=== PATIENT | male | born 1955 | race Caucasian/White ===

== ENCOUNTER 2016-03-04 09:25 | Day surgery (SDC) | payer OTHER ==
[2016-02-28 12:22] VITALS: BMI 19.6
[~2016-03-04 09:25] MED LIST: LACTATED RINGERS 1,000 ML IV SCH; LIDOCAINE 1% 20 ML VIAL (10MG/ML) FOR IV START INTRADERMA PRN
[2016-03-04 09:40] VITALS: RESP 16; TEMP 97.6
[2016-03-04] MEDS ORDERED: PROPOFOL 10 MG/ML 20 ML VIAL IV ONE (10:03)
[2016-03-04] MEDS ORDERED: LIDOCAINE 1% INJ 10MG/ML (20 ML MDV) ONE (10:03)
--- NOTE | 2016-03-04 10:36 | P.PCN ---
Date of Procedure: 03/04/16 Procedure(s) Performed: Procedure: Colonoscopy and polypectomy. Preoperative diagnosis: Screening for neoplasia, patient has history of polyps. Postoperative diagnosis: 1. Mild sigmoid diverticulosis with no evidence of acute diverticulitis or strictures. 2. Two small polyps in the sigmoid snared but no large polyps or cancer. Preparation: HalfLytely prep. Sedation: Was provided by anesthesia. Brief clinical history: The patient is a 60-year-old male who is referred for this evaluation for screening for neoplasia because of history of polyps. His last exam was around 7 or 8 years ago. Currently, he has no abdominal complaints, bleeding or anemia. Procedure: With the patient on his left lateral decubitus position and after informed consent and adequate sedation, the perianal area was inspected and it did not show any fissures or fistulas. There were no masses felt on digital rectal examination. The Olympus CFQ 160L video colonoscope was then inserted in the rectum in the usual fashion and advanced to the cecum. There were occasional diverticular orifices seen in the distal sigmoid with no evidence of acute diverticulitis or strictures. There were 2 small polyps in the mid sigmoid that were snared and retrieved by suction but no large polyps or cancer. I retroflexed the endoscope in the rectum before the endoscope was withdrawn. Low-grade internal hemorrhoids were noted but there was no bleeding. The patient tolerated the procedure well. Plan: The patient was reassured. Discussed dietary measures and I recommended repeat exam in 5 years. He will follow up with you as planned.
[2016-03-04 10:53] VITALS: BP 120/79; PULSE 83
== END 2016-03-04 11:13 | disposition home or self-care (01) ==
LOC: ORWHC2ENDO 09:25
DX: Z12.11 Encounter for screening for malignant neoplasm of colon (principal); Z86.010 Personal history of colon polyps; D12.5 Benign neoplasm of sigmoid colon; K57.30 Diverticulosis of large intestine without perforation or abscess without bleeding; K64.8 Other hemorrhoids; J44.9 Chronic obstructive pulmonary disease, unspecified; I10 Essential (primary) hypertension; E78.5 Hyperlipidemia, unspecified; B18.2 Chronic viral hepatitis C; E07.9 Disorder of thyroid, unspecified; I25.2 Old myocardial infarction; Z79.82 Long term (current) use of aspirin; Z79.899 Other long term (current) drug therapy
CPT/HCPCS: 88305; 45385; J2001; J2704; 99153

== ENCOUNTER → 2016-06-26 | Outpatient (CLI) | payer OTHER ==
--- NOTE | 2016-06-26 11:02 | US ---
EXAMINATION TYPE: US abdomen limited DATE OF EXAM: 06/26/2016 10:34 AM COMPARISON: NONE CLINICAL HISTORY: B19.2 Chronic Hepatitis C. Hep C, pt has no other complaints at this time EXAM MEASUREMENTS: Liver Length: 13.7 cm Gallbladder Wall: 0.3 cm CBD: 0.3 cm Right Kidney: 12.0 x 4.6 x 5.1 cm Pancreas: wnl, tail obscured by overlying bowel gas Liver: wnl Gallbladder: wnl Evidence for sonographic Sanchez's sign: No CBD: wnl Right Kidney: wnl, lower pole gassed out Liver appears homogeneous in echotexture without evidence of worrisome intrahepatic mass with hepatic ductal dilatation on images saved. IMPRESSION: No suspicious intrahepatic mass or intrahepatic ductal dilatation is seen.
== END | disposition home or self-care (01) ==
LOC: RADUSWWP 10:16
PROVIDERS: ATTEND Family Medicine
DX: Z09 Encounter for follow-up examination after completed treatment for conditions other than malignant neoplasm (principal); Z86.19 Personal history of other infectious and parasitic diseases
CPT/HCPCS: 76705

== ENCOUNTER → 2017-04-22 | Outpatient (CLI) | payer OTHER ==
[2017-04-22 11:23] LABS: HCT 49.4 % (39.0-53.0); HGB 16.1 gm/dL (13.0-17.5); MCH 31.8 pg (25.0-35.0); MCHC 32.6 g/dL (31.0-37.0); MCV 97.8 fL (80.0-100.0); Mean Platelet Volume 7.8; Platelet Count 141 k/uL (150-450); RBC 5.05 m/uL (4.30-5.90); RDW 12.8 % (11.5-15.5); WBC 7.9 k/uL (3.8-10.6)
[2017-04-22 11:29] LABS: Anion Gap 13 mmol/L; Blood Urea Nitrogen 14 mg/dL (9-20); Carbon Dioxide 26 mmol/L (22-30); Chloride 103 mmol/L (98-107); Potassium 5.2 mmol/L (3.5-5.1); Sodium 142 mmol/L (137-145)
== END | disposition home or self-care (01) ==
LOC: LABPAT 10:40
PROVIDERS: ATTEND Internal Medicine Cardiovascular Disease
DX: Z01.812 Encounter for preprocedural laboratory examination (principal); I25.5 Ischemic cardiomyopathy
CPT/HCPCS: 36415; 80051; 82565; 84520; 85027

== ENCOUNTER 2017-04-24 07:15 | Day surgery (SDC) | payer OTHER ==
[2017-04-23 08:55] VITALS: BMI 20.3
[~2017-04-24 07:15] MED LIST changes: -LACTATED RINGERS 1,000 ML IV SCH; -LIDOCAINE 1% 20 ML VIAL (10MG/ML) FOR IV START INTRADERMA PRN; +ceFAZolin 1,000 MG in SODIUM CHLORIDE 0.9% IRRIGATIO 250 ML IRRIGATION ONE; +ceFAZolin IN SWFI 2 GM/20 ML SYRINGE IVP ONE
[2017-04-24] MEDS: SODIUM CHLORIDE 0.9% 1,000 ML IV SCH ×5 (07:41→22:53)
[2017-04-24] MEDS ORDERED: fentaNYL (PF) 50 MCG/ML 2 ML AMP ONE (08:52)
[2017-04-24] MEDS ORDERED: MIDAZOLAM 2 MG/2 ML VIAL ONE (08:52)
[2017-04-24] MEDS ORDERED: PROPOFOL 10 MG/ML 20 ML VIAL IV ONE (08:52)
[2017-04-24] MEDS ORDERED: ePHEDrine SULFATE/0.9% NACL/PF 50 MG/5 ML SYRINGE IV ONE (08:52)
[2017-04-24] MEDS ORDERED: IOHEXOL 350 MG/ML 50ML BOTTLE MISCELLANE ONE ×2 (09:00→09:04)
[2017-04-24] MEDS: LIDOCAINE 1% INJ 10MG/ML (20 ML MDV) SQ ONE ×2 (09:21→09:28)
[2017-04-24] MEDS ORDERED: HYDROcodone/APAP 5-325MG 1 EACH TAB PO PRN (10:18)
[2017-04-24] MEDS ORDERED: ACETAMINOPHEN TAB 325 MG TAB PO PRN (10:18)
[2017-04-24] MEDS ORDERED: ALBUTEROL NEBULIZED 2.5 MG/3 ML INHALATION PRN (10:20)
--- NOTE | 2017-04-24 10:34 | P.PCN ---
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 Patient has a class 1-2 congestive heart failure. Patient is advised to have prophylactic AICD implantation. He is advised about the risks and benefits of the procedure. CONSENT:I have discussed the risks, benefits and alternative therapies for the above-mentioned procedure and for both sedation/analgesia as well as necessary blood product administration, if indicated, as they pertain to this patient. The patient has indicated understanding and acceptance of the risks and procedures discussed. PROCEDURE: Patient was brought to the lab in a fasting state. Patient was prepped and draped in the usual fashion. Patient was given IV sedation with fentanyl and Versed. The skin below the left clavicle was infiltrated with lidocaine. An incision was made parallel to deltopectoral groove was deepened until the pectoral fascia was exposed. A pocket was created by blunt dissection and cautery. Axillary venography was performed to delineate the course of the axillary vein. 1 venous stick was performed into extrathoracic portion of the axillary vein and one sheath was advanced over the guidewires and left in subclavian vein. Conscious Sedation: Administered by department of anesthesia Procedure time: 58 minutes LEADS: VENTRICULAR: This is manufactured by [employer] model number is [id number] and the serial number is [id number] The ventricular lead is maneuvered l with help of a straight and curved stylets into the left ventricle apical region. Satisfactory position was obtained and threshold measurements were made. THRESHOLDS: VENTRICLE: The minimum patient threshold was 0.5 at pulse width of 0.5. The impedance is 9:30. R-wave: 10 mV The lead and pulse generator remained in the pocket after it was washed with antibiotics. Pocket was closed in the usual fashion. The fascia was closed with 2-0 Prolene ,the subcutaneous tissue was closed with 3-0 Prolene and the skin was closed with 4-0 Prolene. DFT TESTING: Patient was given full sedation by department of anesthesia. VF was induced with T shock. 11 J shock converted to a low rate and patient spontaneously converted subsequently to sinus rhythm. A computed shock of 21 was applied after the conversion. Subsequently VF was induced with T shock again. A 21 J shock converted him to sinus rhythm. Patient tolerated the procedure well PROGRAMMING: Bradycardia therapy: MODE: VVI RATE: 40 OUTPUT: Ventricle: 3.5 V Tachycardia therapy: #1. VF zone is programmed to 200 bpm. Therapies are programmed to 35 J 6. #2. VT zone is programmed to a rate of 170. The therapies are programmed to burst pacing followed by ramp pacing followed by cardioversion 4. The first cardioversion is a 30 J followed by 353 FINAL IMPRESSION: #1. Axillary venography. #2. Successful implantation of single coil single-chamber AICD #3. DFT testing COMPLICATIONS: None PLAN:. Continue prophylactic antibiotics. Continue monitoring on the telemetry unit. Chest x-ray in the morning. If stable will discharge home in the morning.
[2017-04-24] MEDS: LACTATED RINGERS 1,000 ML IV SCH ×2 (16:02→22:54)
[2017-04-24] MEDS: ceFAZolin IN SWFI 2 GM/20 ML SYRINGE IVP SCH ×2 (16:23→22:15)
[2017-04-24] MEDS: IPRATROPIUM-ALBUTEROL 3 ML NEB INHALATION SCH (20:31)
[2017-04-25] MEDS: ceFAZolin IN SWFI 2 GM/20 ML SYRINGE IVP SCH ×2 (03:24→09:28)
[2017-04-25] MEDS ORDERED: LEVOTHYROXINE 25 MCG TAB PO SCH (06:30)
[2017-04-25 07:53] VITALS: RESP 18; TEMP 98.2
[2017-04-25] MEDS: IPRATROPIUM-ALBUTEROL 3 ML NEB INHALATION SCH (08:58)
[2017-04-25] MEDS ORDERED: TAMSULOSIN 0.4 MG CAP.ER.24H PO SCH (09:00)
[2017-04-25] MEDS ORDERED: ASPIRIN 325 MG TAB PO SCH (09:00)
[2017-04-25] MEDS ORDERED: SPIRONOLACTONE 25 MG TAB PO SCH (09:00)
[2017-04-25] MEDS ORDERED: METOPROLOL SUCCINATE (ER) 100 MG TAB.ER.24H PO SCH (09:00)
[2017-04-25] MEDS ORDERED: LISINOPRIL 10 MG TAB PO SCH (09:00)
--- NOTE | 2017-04-25 11:07 | ECHOF ---
Referral Reason:cardiomyopathy MEASUREMENTS -------- HEIGHT: 182.9 cm WEIGHT: 68.0 kg BP: 112/71 RVIDd: 2.8 cm (< 3.3) IVSd: 0.8 cm (0.6 - 1.1) LVIDd: 4.9 cm (3.9 - 5.3) LVPWd: 0.9 cm (0.6 - 1.1) IVSs: 1.0 cm LVIDs: 3.7 cm LVPWs: 1.1 cm LAESV Index (A-L): 16.38 ml/m Ao Diam: 3.6 cm (2.0 - 3.7) AV Cusp: 1.6 cm (1.5 - 2.6) LA Diam: 3.0 cm (2.7 - 3.8) MV E Jose: 0.52 m/s MV DecT: 272 ms MV A Jose: 0.55 m/s MV E/A Ratio: 0.95 RAP: 5.00 mmHg RVSP: 8.66 mmHg MV EF SLOPE: 84.16 mm/s (70 - 150) MV EXCURSION: 1.87 cm (> 18.000) FINDINGS -------- Sinus rhythm. This was a technically adequate study. The left ventricular size is normal. Left ventricular wall thickness is normal. There is severe g lobal hypokinesis of LV . Overall left ventricular systolic function is severely impaired with, an EF between 20 - 25 %. Basal lateral LV wall motion is hypokinetic. Basal posterior LV wall motio n is hypokinetic. Basal inferior LV wall motion is hypokinetic. Basal inferoseptal LV wall meeta on is hypokinetic. Mid inferior LV wall motion is hypokinetic. Apical inferior LV wall motion i s normal. The right ventricle is mildly enlarged. Normal LA size by volume 22+/-6 ml/m2. The right atrium is normal in size. Electronic pacemaker lead seen in the right ventricular cavity. Aortic valve is trileaflet and is mildly thickened. There is no evidence of aortic regurgitation. There is no evidence of aortic stenosis. The mitral valve leaflets are mildly thickened. There is trace to mild mitral regurgitation. Trace tricuspid regurgitation present. Right ventricular systolic pressure is normal at < 35 mmHg. There is no evidence of pulmonary hypertension. The pulmonic valve was not well visualized. The aortic root size is normal. Normal inferior vena cava with normal inspiratory collapse consistent with estimated right atrial pre ssure of 5 mmHg. CONCLUSIONS -------- 1. Sinus rhythm. 2. This was a technically adequate study. 3. The left ventricular size is normal. 4. Left ventricular wall thickness is normal. 5. Apical inferior LV wall motion is normal. 6. The right ventricle is mildly enlarged. 7. Normal LA size by volume 22+/-6 ml/m2. 8. Electronic pacemaker lead seen in the right ventricular cavity. 9. Aortic valve is trileaflet and is mildly thickened. 10. The mitral valve leaflets are mildly thickened. 11. There is trace to mild mitral regurgitation. 12. Trace tricuspid regurgitation present. 13. Right ventricular systolic pressure is normal at < 35 mmHg. 14. There is no evidence of pulmonary hypertension. 15. The pulmonic valve was not well visualized. 16. The aortic root size is normal. CUTTER FIRST: Bryn Long RDCS
--- NOTE | 2017-04-25 11:08 | XR ---
EXAMINATION TYPE: XR chest 2V DATE OF EXAM: 04/25/2017 COMPARISON: NONE HISTORY: Pacer check TECHNIQUE: Frontal and lateral views of the chest are obtained. FINDINGS: Scattered senescent parenchymal changes noted. Pacer device is in place with the distal lead within the right ventricle. No evidence for pneumothora x. No evidence for infiltrate. Linear atelectasis or scarring left lung base. Heart size is stable. Mediastinal structures are stable and grossly unremarkable. No evidence for hilar prominence. Degenerative changes dorsal spine. IMPRESSION: 1. No evidence for acute pulmonary disease.
[2017-04-25 11:49] VITALS: BP 133/83; PULSE 66
[2017-04-25] MEDS ORDERED: MULTIVITAMINS, THERA 1 EACH TAB PO SCH (12:00)
--- NOTE | 2017-04-25 12:24 | P.DS ---
Providers Date of admission: 04/24/2017 Expected date of discharge: 04/25/17 Attending physician: Nena Murry [facility] care physician[facility] Course: Mr. Dejesus was brought into the hospital 04/24/2017 for elective placement of single chamber AICD for ischemic cardiomyopathy, class 1-2 congestive heart failure. There was successful implantation of a single coil single chamber AICD with appropriate programming and DFT testing. Chest xray this morning reveals no acute abnormalities, echocardiogram is negative for pericardial effusion, telemetry tracings have been unremarkable. [employer] tested the device and it is working appropriately. He has received his antibiotics without incident. Left arm is maintained in a sling as advised. Dressing is clean dry and intact. Denies pain to the site. Follow-up appointment has been made for device check in 1-week with instructions to not use his left arm, no driving, no heavy lifting. He is agreeable and family is at the bedside during instructions. The pressure 133/83 heart rate 66 afebrile maintaining oxygen saturation on room air. GENERAL: Well-appearing, well-nourished and in no acute distress. NECK: Supple without JVD or thyromegaly. LUNGS: Breath sounds clear to auscultation bilaterally. Respiration equal and unlabored. No wheezes, rales or rhonchi. HEART: Regular rate and rhythm without murmurs, rubs or gallops. S1 and S2 heard. EXTREMITIES: Normal range of motion, no edema. Discharge medications include: Flomax 0.4 mg daily, Aldactone 25 mg daily, multivitamin one daily, Toprol 100 mg daily, lisinopril 10 mg daily, Synthroid 25 g daily, aspirin 325 mg daily and Keflex 500 mg 3 times a day 3 days. The prescription has been sent to his pharmacy with instructions for usage. Patient Condition at Discharge: Good Plan - Discharge Summary Discharge Rx Participant: No New Discharge Prescriptions: New Cephalexin [Keflex] 500 mg PO Q8HR 3 Days #9 cap Continue Spironolactone [Aldactone] 25 mg PO DAILY Ipratropium/Albuterol Sulfate [Combivent Respimat Inhaler] 2 puff INHALATION BID Aspirin 325 mg PO DAILY Albuterol Inhaler [Ventolin Hfa Inhaler] 1 - 2 puff INHALATION Q6HR PRN PRN Reason: Dyspnea Tamsulosin [Flomax] 0.4 mg PO DAILY Lisinopril [Zestril] 10 mg PO DAILY Levothyroxine Sodium [Synthroid] 25 mcg PO DAILY Multivitamin [Men's Multi-Vitamin] 1 each PO DAILY Metoprolol Succinate [Toprol XL] 100 mg PO DAILY Discharge Medication List Albuterol Inhaler [Ventolin Hfa Inhaler] 1 - 2 puff INHALATION Q6HR PRN [History] Aspirin 325 mg PO DAILY 02/28/16 [History] Ipratropium/Albuterol Sulfate [Combivent Respimat Inhaler] 2 puff INHALATION BID 02/28/16 [History] Levothyroxine Sodium [Synthroid] 25 mcg PO DAILY 02/28/16 [History] Lisinopril [Zestril] 10 mg PO DAILY 02/28/16 [History] Metoprolol Succinate [Toprol XL] 100 mg PO DAILY 02/28/16 [History] Multivitamin [Men's Multi-Vitamin] 1 each PO DAILY 02/28/16 [History] Spironolactone [Aldactone] 25 mg PO DAILY 02/28/16 [History] Tamsulosin [Flomax] 0.4 mg PO DAILY 02/28/16 [History] Cephalexin [Keflex] 500 mg PO Q8HR 3 Days #9 cap 04/25/17 [Rx] Follow up Appointment(s)/Referral(s): Nnea Murry MD [STAFF PHYSICIAN] - 1 Week Patient Instructions/Handouts: Implantable Cardioverter Defibrillator (GEN) Discharge Disposition: HOME SELF-CARE
== END 2017-04-25 12:53 | disposition home or self-care (01) ==
LOC: CATHEP 07:15 → 3OBS 10:08 → CATHEP 04-25 12:53
PROVIDERS: ATTEND Internal Medicine Cardiovascular Disease
DX: I25.5 Ischemic cardiomyopathy (principal); I11.0 Hypertensive heart disease with heart failure; I50.42 Chronic combined systolic (congestive) and diastolic (congestive) heart failure; I08.1 Rheumatic disorders of both mitral and tricuspid valves; I25.10 Atherosclerotic heart disease of native coronary artery without angina pectoris; I73.9 Peripheral vascular disease, unspecified; I25.2 Old myocardial infarction; J44.9 Chronic obstructive pulmonary disease, unspecified; E07.9 Disorder of thyroid, unspecified; B19.20 Unspecified viral hepatitis C without hepatic coma; Z79.890 Hormone replacement therapy; Z79.899 Other long term (current) drug therapy; Z79.82 Long term (current) use of aspirin; Z87.891 Personal history of nicotine dependence
CPT/HCPCS: 94640 ×2; 93306; 93641; 33249; 84132; 71046; C1895; C1722; J0690 ×3; J2001; Q9967

== ENCOUNTER → 2017-05-20 | Outpatient (CLI) | payer OTHER ==
--- NOTE | 2017-05-20 10:20 | US ---
EXAMINATION TYPE: US liver DATE OF EXAM: 05/20/2017 COMPARISON: NONE CLINICAL HISTORY: 61-year-old male Chronic viral hepatitis unspec B18.9. finished medication for Hep C last year, no symptoms Technique: Multiple sonographic images of the right upper quadrant are obtained. FINDINGS: Liver Length: 14.9 cm Gallbladder Wall: 0.2 cm CBD: 0.4 cm Right Kidney: 10.2 x 4.7 x 4.8 cm Pancreas: Suboptimal visualization of the pancreatic tail secondary to shadowing from bowel gas. Liver: Normal size with overall homogeneous echotexture. No focal lesion. Gallbladder: posterior fundal non mobile, non shadowing mural-based echogenic areas along the lawn mower sharpener ior gallbladder fundus. Small areas of comet tail artifact are present along the anterior wall compat ible with adenomyomatosis. No abnormal gallbladder distention, pericholecystic fluid, or shadowing ca lculi. Evidence for sonographic Sanchez's sign: no CBD: wnl Right Kidney: No hydronephrosis IMPRESSION: 1. No sonographic evidence for hepatoma. 2. Gallbladder findings could represent adherent debris or polyps along the posterior fundus. Additio nal findings along the anterior wall is compatible with adenomyomatosis. Six-month follow-up gallblad kaiden ultrasound recommended to reassess.
== END | disposition home or self-care (01) ==
LOC: RADUSWWP 09:23
DX: B18.9 Chronic viral hepatitis, unspecified (principal)
CPT/HCPCS: 76705

== ENCOUNTER 2022-10-22 10:51 | Day surgery (SDC) | payer OTHER ==
[2022-10-21 10:12] VITALS: BMI 18.3
[~2022-10-22 10:51] MED LIST changes: +ALPRAZolam 0.25 MG TAB PO PRN; +ASPIRIN 325 MG TAB PO PRN; +SODIUM CHLORIDE 0.9% 1,000 ML IV ONE; +SODIUM CHLORIDE 0.9% 1,000 ML in EMPTY BAG 1 BAG IV ONE; -ceFAZolin 1,000 MG in SODIUM CHLORIDE 0.9% IRRIGATIO 250 ML IRRIGATION ONE; -ceFAZolin IN SWFI 2 GM/20 ML SYRINGE IVP ONE
[2022-10-22 11:15] VITALS: RESP 16; TEMP 98.2
[2022-10-22] MEDS ORDERED: LIDOCAINE 1% INJ 10MG/ML (20 ML MDV) ONE (11:22)
[2022-10-22] MEDS ORDERED: MIDAZOLAM 2 MG/2 ML VIAL IVP ONE (11:51)
[2022-10-22] MEDS ORDERED: LIDOCAINE 1% INJ 10MG/ML (20 ML MDV) SQ ONE (11:52)
[2022-10-22] MEDS ORDERED: VERAPAMIL SYRINGE (5 MG/10 ML) INTRAARTER ONE (11:53)
[2022-10-22] MEDS ORDERED: VERAPAMIL 2.5 MG/ML 2 ML AMP ONE (11:55)
[2022-10-22] MEDS ORDERED: HEPARIN SODIUM 1,000 UN/ML (10ML VL) IV ONE (11:58)
[2022-10-22] MEDS ORDERED: HEPARIN SODIUM 1,000 UN/ML (10ML VL) ONE (11:58)
[2022-10-22] MEDS ORDERED: IOPAMIDOL-370 100ML BTL INJ ONE (12:12)
[2022-10-22] MEDS ORDERED: RX INFO: IV CONTRAST WAS GIVEN 1 EACH MISC MISCELLANE PRN (12:16)
--- NOTE | 2022-10-22 12:24 | P.PCN ---
Date of Procedure: 10/22/22 Operative Findings: AN ABDOMINAL AORTOGRAM AND BILATERAL LOWER EXTREMITIES RUNOFF PERFORMING PHYSICIAN: Jean-Paul Macias MD PROCEDURE PERFORMED: 1. An abdominal aortogram 2. Bilateral lower extremities runoff 3. Ultrasound-guided access of the right radial artery INDICATION: This is a 66-year-old gentleman who sees Dr. Hanna regularly who was experiencing bilateral lower extremity is intermittent claudication and underwent an arterial duplex study came in to be abnormal showing occlusive disease. In the light of that he was brought today to undergo an aortogram with runoff COMPLICATION: None LEVEL OF SEDATION: Moderate was sedation length of 17 minutes APPROACH: Right common femoral artery PROCEDURE DESCRIPTION: After obtaining informed consent and explaining the procedure benefits, risks, and complications, the patient was brought to the cardiac chemical lab supervisor. The right radial artery was prepped and draped in sterile fashion. The right radial artery was cannulated using micropuncture technique, under ultrasound guidance. A micropuncture wire was advanced, and the micropuncture sheath was advanced over the wire, then the micropuncture sheath was exchanged over an 0.35 wire into a 5-Czech sheath dilator assembly then the wire and dilator were removed and sheath was flushed. Subsequently the patient was given 2 mg of verapamil and her arterial and 3000 use of heparin and the venous We did an abdominal aortogram and bilateral lower extremities runoff using 5- Czech pigtail catheter using a power injection. The catheter was initially placed at the level of the renal arteries, and it was advanced into above the bifurcation of the aorta into right and left common iliac arteries. The procedure was completed and there was no complications. SELECTIVE PERIPHERAL ANGIOGRAM: The abdominal aorta: As calcified was mild occlusive disease only. No aneurysmal formation was identified. The common iliac arteries: The right and left common iliac arteries appears to have mild disease only. The external iliac arteries: The right and left external iliac artery has severe lesion appeared to be in the range of 80-90% appeared to be very eccentric. Left external iliac artery appears to have mild to moderate diffuse disease The internal iliac arteries: The right and left internal iliacs are patent. There is severe disease involving the ostial of the left internal iliac The common femoral arteries: In the right common femoral artery is severely diseased. The left common femoral artery is occluded. Superficial femoral arteries: Both SFA are occluded on long segment extending from the ostium all the way to the knee level. Popliteal arteries: Both popliteal appeared to be occluded. Below the knees: The arteries below the knee were not well-visualized because of poor inflow. CONCLUSION: 1. 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 Critical right common femoral artery and occluded left common femoral artery 3. Occluded bilateral SFA and bilateral popliteal POSTPROCEDURE MANAGEMENT: 1. At this point I would consider doing a STATISTICAL ASSISTANT of the right external iliac artery to open the inflow 2. Subsequently the patient will benefit from bilateral femoral endarterectomy if he is a reasonable surgical candidate
[2022-10-22] MEDS ORDERED: SODIUM CHLORIDE 0.9% 1,000 ML IV SCH (12:30)
--- NOTE | 2022-10-22 12:50 | IR ---
EXAMINATION TYPE: IR angio abdominal w runoff DATE OF EXAM: 10/22/2022 COMPARISON: NONE HISTORY: Fluoroscopy time. Fluoroscopy was provided to the referring clinician.
[2022-10-22 15:44] VITALS: BP 105/65; PULSE 75
== END 2022-10-22 15:25 | disposition home or self-care (01) ==
LOC: CATHCVL 10:51
PROVIDERS: ATTEND Internal Medicine Interventional Cardiology
DX: I70.213 Atherosclerosis of native arteries of extremities with intermittent claudication, bilateral legs (principal); I70.202 Unspecified atherosclerosis of native arteries of extremities, left leg; I11.0 Hypertensive heart disease with heart failure; I50.22 Chronic systolic (congestive) heart failure; I25.5 Ischemic cardiomyopathy; Z79.890 Hormone replacement therapy; Z79.82 Long term (current) use of aspirin; Z79.899 Other long term (current) drug therapy
CPT/HCPCS: 36200; 75625; 75716; 76937; C1769 ×2; C1894; J2250; J2001; J1644; Q9967

== ENCOUNTER 2022-11-13 06:57 | Day surgery (SDC) | payer OTHER ==
[~2022-11-13 06:57] MED LIST changes: +ALPRAZolam 0.5 MG TAB PO PRN; +HEPARIN SODIUM,PORCINE (1 ML) 2,500 UNIT in SODIUM CHLORIDE 0.9% 250 ML IRRIGATION PRN; +HEPARIN SODIUM,PORCINE 10,000 UNIT in SODIUM CHLORIDE 0.9% 1,000 ML IRRIGATION PRN; -SODIUM CHLORIDE 0.9% 1,000 ML IV ONE; +ZOLPIDEM 5 MG TAB PO PRN
[2022-11-13 07:41] LABS: Basophils % (A) 1 %; Eosinophils # (A) 0.4 k/uL (0-0.7); Eosinophils % (A) 4 %; HCT 43.4 % (39.0-53.0); HGB 14.5 gm/dL (13.0-17.5); Lymphocytes # (A) 2.1 k/uL (1.0-4.8); Lymphocytes % (A) 27 %; MCH 33.5 pg (25.0-35.0); MCHC 33.5 g/dL (31.0-37.0); MCV 100.1 fL (80.0-100.0); Monocytes # (A) 0.5 k/uL (0-1.0); Monocytes % (A) 7 %; Neutrophils # (A) 4.8 k/uL (1.3-7.7); Neutrophils % (A) 60 %; Platelet Count 129 k/uL (150-450); RBC 4.33 m/uL (4.30-5.90); RDW 12.8 % (11.5-15.5)
[2022-11-13 07:57] LABS: African American GFR (CKD) >90 (>60 ml/min/1.73 sqM); Anion Gap 13 mmol/L; Blood Urea Nitrogen 20 mg/dL (9-20); Calcium 9.5 mg/dL (8.4-10.2); Carbon Dioxide 21 mmol/L (22-30); Chloride 103 mmol/L (98-107); Glucose 74 mg/dL (74-99); Non-African American GFR(CKD) 89 (>60 ml/min/1.73 sqM); Sodium 137 mmol/L (137-145)
[2022-11-13] MEDS ORDERED: LIDOCAINE 1% INJ 10MG/ML (20 ML MDV) ONE (09:08)
[2022-11-13] MEDS ORDERED: niCARdipine 25 MG/10 ML VIAL ONE (09:11)
[2022-11-13] MEDS ORDERED: MIDAZOLAM 2 MG/2 ML VIAL IVP ONE (09:50)
[2022-11-13] MEDS ORDERED: LIDOCAINE 1% INJ 10MG/ML (20 ML MDV) SQ ONE (09:55)
[2022-11-13] MEDS ORDERED: HEPARIN SODIUM 1,000 UN/ML (10ML VL) ONE (10:03)
[2022-11-13] MEDS ORDERED: HEPARIN SODIUM 1,000 UN/ML (10ML VL) IVP ONE (10:05)
[2022-11-13] MEDS ORDERED: IOPAMIDOL-370 100ML BTL INJ ONE (10:07)
[2022-11-13] MEDS ORDERED: CLOPIDOGREL 75 MG TAB ONE (10:15)
[2022-11-13] MEDS ORDERED: CLOPIDOGREL 75 MG TAB PO ONE (10:19)
[2022-11-13] MEDS ORDERED: NALOXONE 0.4 MG/ML 1 ML VIAL IVP PRN (11:09)
--- NOTE | 2022-11-13 11:14 | P.PCN ---
Date of Procedure: 11/13/22 Operative Findings: PERCUTANEOUS PERIPHERAL INTERVENTION Performing physician Jean-Paul Macias M.D. Procedure performed 1. Successful stenting of the right external iliac artery using 8.0 x 60 mm self-expandable stent 2. Adjunctive use of intravascular imaging 3. Right external iliac and right common femoral artery arterial 4. Ultrasound guided access of the right common femoral artery Indication The right lower extremities intermittent claudication in this 66-year-old gentleman who underwent an angiogram and that showed critical right external iliac artery Approach Right common femoral artery Complications None Level of sedation Moderate with a sedation time of 33 minutes Procedure description After obtaining an informed consent the patient was brought to the cardiac technology lab teacher. The right common femoral artery was cannulated using micropuncture technique under ultrasound guidance the micropuncture wire passed easily then I placed a slender 5/6-Kiswahili sheath over 018 wire. Subsequently the sheath was secured with tape. Please note that the sheath was only advanced for few centimeter and was positioned at the proximal right common femoral artery at the junction of the right external iliac artery. After that I did place an [address] to the aorta and I did intravascular ultrasound which showed a diameter of the right external iliac artery appear to be in the range of 7-8 mm. I did predilatation using 5 mm balloon and subsequently I deployed a 8.0 x 60 mm self-expandable stent where the stent was positioned under fluoroscopy guidance and postdilated using 7 mm balloon. Final angiogram showed good angiog raphic results and the procedure was completed there was no complication. Subsequently over the 018 wire I advanced the sheath all the way in. The procedure was completed was no complication Postprocedure management 1. Dual antiplatelet therapy 2. Aggressive cholesterol control 3. Risk factors modification 4. Follow-up with the patient
[2022-11-13] MEDS ORDERED: SODIUM CHLORIDE 0.9% 1,000 ML in EMPTY BAG 1 BAG IV SCH (11:15)
--- NOTE | 2022-11-13 11:31 | IR ---
EXAMINATION TYPE: IR stent intravas non coronary DATE OF EXAM: 11/13/2022 COMPARISON: NONE HISTORY: Fluoroscopy time. Fluoroscopy was provided to the referring clinician.
[2022-11-13] MEDS: IPRATROPIUM-ALBUTEROL 3 ML NEB INHALATION SCH (20:26)
[2022-11-13] MEDS ORDERED: ATORVASTATIN 40 MG TAB PO SCH (21:00)
[2022-11-14] MEDS ORDERED: LEVOTHYROXINE 25 MCG TAB PO SCH (06:30)
[2022-11-14 07:46] LABS: African American GFR (CKD) >90 (>60 ml/min/1.73 sqM); Non-African American GFR(CKD) >90 (>60 ml/min/1.73 sqM)
[2022-11-14 08:17] VITALS: BP 115/72; PULSE 79; RESP 14; TEMP 97.9
[2022-11-14] MEDS: IPRATROPIUM-ALBUTEROL 3 ML NEB INHALATION SCH (08:46)
[2022-11-14] MEDS ORDERED: CLOPIDOGREL 75 MG TAB PO SCH (09:00)
[2022-11-14] MEDS ORDERED: ASPIRIN 81 MG PO SCH (09:00)
[2022-11-14] MEDS ORDERED: TAMSULOSIN 0.4 MG CAP.ER.24H PO SCH (09:00)
[2022-11-14] MEDS ORDERED: lisinopriL 10 MG TAB PO SCH (09:00)
[2022-11-14] MEDS ORDERED: METOPROLOL SUCCINATE (ER) 100 MG TAB.ER.24H PO SCH (09:00)
[2022-11-14] MEDS ORDERED: CHOLECALCIFEROL 25 MCG (1000 IU) TABLET PO SCH (09:00)
[2022-11-14] MEDS ORDERED: SPIRONOLACTONE 25 MG TAB PO SCH (09:00)
--- NOTE | 2022-11-14 17:55 | P.DS ---
Providers Attending physician: Jean-Paul Macias Primary care physician: [facility] Course: The patient is a pleasant 66-year-old gentleman who underwent yesterday successful balloon angioplasty and stenting of the right iliac artery from right groin approach. He was seen and evaluated this morning. The right groin is soft and nontender with no bruises. The right foot is warm. The patient is going to be discharged home and followed by Dr. Hanna has an outpatient. He need to undergo left femoral endarterectomy. He was advised to take his medications including dual antiplatelet therapy along with a statin and he was in full understanding and agreement Plan - Discharge Summary Discharge Rx Participant: No New Discharge Prescriptions: New Clopidogrel [Plavix] 75 mg PO DAILY #90 tablet Continue Spironolactone [Aldactone] 25 mg PO DAILY Ipratropium/Albuterol Sulfate [Combivent Respimat Inhaler] 2 puff INHALATION BID Albuterol Inhaler [Ventolin Hfa Inhaler] 1 - 2 puff INHALATION Q6HR PRN PRN Reason: Dyspnea Tamsulosin [Flomax] 0.4 mg PO DAILY lisinopriL [Zestril] 10 mg PO DAILY Levothyroxine Sodium [Synthroid] 25 mcg PO DAILY Metoprolol Succinate [Toprol XL] 100 mg PO DAILY Cholecalciferol [Vitamin D3 (25 Mcg = 1000 Iu)] 50 mcg PO DAILY Atorvastatin [Lipitor] 40 mg PO HS Aspirin [Adult Low Dose Aspirin EC] 81 mg PO DAILY Discharge Medication List Albuterol Inhaler [Ventolin Hfa Inhaler] 1 - 2 puff INHALATION Q6HR PRN 02/28/16 [History] Ipratropium/Albuterol Sulfate [Combivent Respimat Inhaler] 2 puff INHALATION BID 02/28/16 [History] Levothyroxine Sodium [Synthroid] 25 mcg PO DAILY 02/28/16 [History] Metoprolol Succinate [Toprol XL] 100 mg PO DAILY 02/28/16 [History] Spironolactone [Aldactone] 25 mg PO DAILY 02/28/16 [History] Tamsulosin [Flomax] 0.4 mg PO DAILY 02/28/16 [History] lisinopriL [Zestril] 10 mg PO DAILY 02/28/16 [History] Aspirin [Adult Low Dose Aspirin EC] 81 mg PO DAILY 03/13/21 [History] Cholecalciferol [Vitamin D3 (25 Mcg = 1000 Iu)] 50 mcg PO DAILY 03/13/21 [History] Atorvastatin [Lipitor] 40 mg PO HS 10/21/22 [History] Clopidogrel [Plavix] 75 mg PO DAILY #90 tablet 11/14/22 [Rx] Follow up Appointment(s)/Referral(s): Caesar Hanna MD [STAFF PHYSICIAN] - 12/04/22 3:15 pm Patient Instructions/Handouts: Peripheral Vascular Angioplasty (DC) Discharge Disposition: HOME SELF-CARE
== END 2022-11-14 10:50 | disposition home or self-care (01) ==
LOC: CATHCVL 06:57 → 3SCARD 10:30 → CATHCVL 11-14 10:50
PROVIDERS: ATTEND Internal Medicine Interventional Cardiology
DX: I73.9 Peripheral vascular disease, unspecified (principal); I25.10 Atherosclerotic heart disease of native coronary artery without angina pectoris; I42.9 Cardiomyopathy, unspecified; I10 Essential (primary) hypertension; Z79.890 Hormone replacement therapy; Z79.899 Other long term (current) drug therapy; Z79.02 Long term (current) use of antithrombotics/antiplatelets; Z79.82 Long term (current) use of aspirin; Z95.5 Presence of coronary angioplasty implant and graft
CPT/HCPCS: 94640; 37221; 37252; 80048; 82565; 85025; 99152; 99153; C1894; C1769 ×4; C1725; C1876; C1753; J2250; J2001; J1644; Q9967